=== PATIENT | male | born 1965 | race Caucasian/White ===

== ENCOUNTER 2018-06-07 20:34 | Inpatient (IN) | payer BC, OTHER ==
[~2018-06-07] VITALS: Ht 170.2 cm; Wt 83.5 kg
[2018-06-07 21:02] LABS: BASOPHILS % (AUTO) 1 % (0-10); EOSINOPHILS # (AUTO) 0.1 10^3/uL (0.0-0.3); EOSINOPHILS % (AUTO) 2 % (0-10); HEMATOCRIT 42 % (40-54); HEMOGLOBIN 15.2 G/DL (13.3-17.7); LYMPHOCYTES # (AUTO) 2.7 X 10^3 (1.0-4.0); LYMPHOCYTES % (AUTO) 42 % (12-44); MEAN CORPUSCULAR HEMOGLOBIN 32 PG (25-34); MEAN CORPUSCULAR HGB CONC 37 G/DL (32-36); MEAN CORPUSCULAR VOLUME 87 FL (80-99); MEAN PLATELET VOLUME 10.9 FL (7.4-10.4); MONOCYTES # (AUTO) 0.8 X 10^3 (0.0-1.0); MONOCYTES % (AUTO) 12 % (0-12); NEUTROPHILS # (AUTO) 2.8 X 10^3 (1.8-7.8); NEUTROPHILS % (AUTO) 44 % (42-75); PLATELET COUNT 187 10^3/uL (130-400); RED BLOOD COUNT 4.78 10^6/uL (4.35-5.85); RED CELL DISTRIBUTION WIDTH 12.5 % (10.0-14.5); WHITE BLOOD COUNT 6.5 10^3/uL (4.3-11.0)
[2018-06-07] MEDS: NS IV 1000 ML 1,000 ML IV SCH (21:07)
[2018-06-07 21:24] LABS: ALBUMIN 4.4 GM/DL (3.2-4.5); BILIRUBIN,TOTAL 0.8 MG/DL (0.1-1.0); CALCIUM 9.6 MG/DL (8.5-10.1); CREATININE SERUM 1.68 MG/DL (0.60-1.30); POTASSIUM 4.2 MMOL/L (3.6-5.0); TOTAL PROTEIN 7.5 GM/DL (6.4-8.2)
[2018-06-07 21:27] LABS: BILIRUBIN,URINE NEGATIVE (NEGATIVE); CLARITY,URINE CLEAR; COLOR,URINE YELLOW; GLUCOSE, URINE (UA) 4+ (NEGATIVE); KETONES,URINE 1+ (NEGATIVE); LEUKOCYTE ESTERASE ,URINE NEGATIVE (NEGATIVE); NITRITE,URINE NEGATIVE (NEGATIVE); PH,URINE 6 (5-9); PROTEIN,URINE NEGATIVE (NEGATIVE); UROBILINOGEN,URINE NORMAL (NORMAL)
[2018-06-07 21:37] LABS: SQUAMOUS EPITHELIAL CELL,UR RARE /HPF
[2018-06-07] MEDS ORDERED: inSUlin (REGULAR) HUMAN 1 UNIT/0.01 ML (CHARGE PER UNIT) IV ONE (21:45)
[2018-06-07] MEDS ORDERED: NS IV 1000 ML 1,000 ML IV SCH (21:45)
--- NOTE | 2018-06-07 21:58 | ED General ---
General Chief Complaint: Glucose Problems Stated Complaint: POSS DKA Nursing Triage Note: pt presents to ed with complaints of 15 lb weight loss x 30 days, increase in thirst and urination x 1 week. pt was seen at his doctors office today and told his A1C was 12.9. Pt reports he checked his blood sugar lpta and it read high on his glucometer. Nursing Sepsis Screen: No Definite Risk Source of Information: Patient Exam Limitations: No Limitations History of Present Illness Date Seen by Provider: Jun 07, 2018 Time Seen by Provider: 20:50 Initial Comments Patient is a 53-year-old male who presents to the emergency room with complaints of 15 pound weight loss over the past month increased thirst and urination for the past week and was seen today at his doctor's office and told that he had a hemoglobin A1c of 12.9. He checked his blood sugars on his glucometer at home and his meter was too high to read. Denies any nausea or vomiting. Timing/Duration: Changing Over Time Associated Systoms: Malaise Allergies and Home Medications Allergies Coded Allergies: codeine (Verified Allergy, Unknown, 06/07/18) Patient Home Medication List Home Medication List Reviewed: Yes Review of Systems Review of Systems Constitutional: see HPI; No chills, No fever; weight loss Genitourinary: see HPI, frequency All Other Systems Reviewed Negative Unless Noted: Yes Past Yistgzg-Hebqwh-Raktuy Hx Past Med/Social Hx: Reviewed Nursing Past Med/Soc Hx Patient Social History Alcohol Use: Past History Alcohol Beverage of Choice: Beer Recreational Drug Use: No Smoking Status: Never a Smoker Type Used: Smokeless Tobacco Recent Foreign Travel: No Contact w/Someone Who Travel: No Recent Infectious Disease Expo: No Recent Hopitalizations: No Physical Abuse: No Sexual Abuse: No Mistreated: No Fear: No Past Medical History Surgeries: Yes (tubes in ears, rib fx) Respiratory: No Cardiac: Yes Hypertension Neurological: No Genitourinary: No Gastrointestinal: No Musculoskeletal: No Endocrine: Yes Diabetes, Non-Insulin dep HEENT: No Cancer: No Psychosocial: No Blood Disorders: No Family Medical History Reviewed Nursing Family Hx Physical Exam Vital Signs Vital Signs - First Documented 06/07/18 20:50 Temp 98.6 Pulse 71 Resp 20 B/P (MAP) 170/105 (126) Pulse Ox 98 Capillary Refill : Less Than 3 Seconds Height, Weight, BMI Height: 5'7.00" Weight: 180lbs. oz. 81.866409mk; BMI Method:Stated General Appearance: No Apparent Distress, WD/WN HEENT: PERRL/EOMI, TMs Normal, Normal ENT Inspection, Pharynx Normal Neck: Full Range of Motion, Normal Inspection, Non Tender, Supple, Carotid Bruit Respiratory: Chest Non Tender, Lungs Clear, Normal Breath Sounds, No Accessory Muscle Use, No Respiratory Distress; No Crackles, No Decreased Breath Sounds, No Expiration, No Inspiration, No Pleural Rub, No Rales, No Respiratory Distress , No Rhonci, No Stridor, No Wheezing, No Other Cardiovascular: Regular Rate, Rhythm, No Edema, No Gallop, No JVD, No Murmur, Normal Peripheral Pulses Gastrointestinal: Normal Bowel Sounds, No Organomegaly, No Pulsatile Mass, Non Tender, Soft Neurologic/Psychiatric: Alert, Oriented x3, Normal Mood/Affect Skin: Normal Color, Warm/Dry Progress/Results/Core Measures Suspected Sepsis Recent Fever Within 48 Hours: No Infection Criteria Present: None New/Unexplained Altered Menta: No Sepsis Screen: No Definite Risk SIRS Temperature:98.6 Pulse: 71 Respiratory Rate: 20 Laboratory Tests 06/07/18 20:53: White Blood Count 6.5 Blood Pressure 170 /105 Mean: 126 Laboratory Tests 06/07/18 20:53: Creatinine 1.68H, Platelet Count 187, Total Bilirubin 0.8 06/07/18 23:20: Results/Orders Lab Results Laboratory Tests Test 06/07/18 20:53 06/07/18 21:20 06/07/18 22:17 06/07/18 23:13 Range/Units White Blood Count 6.5 4.3-11.0 10^3/uL Red Blood Count 4.78 4.35-5.85 10^6/uL Hemoglobin 15.2 13.3-17.7 G/DL Hematocrit 42 40-54 % Mean Corpuscular Volume 87 80-99 FL Mean Corpuscular Hemoglobin 32 25-34 PG Mean Corpuscular Hemoglobin Concent 37 H 32-36 G/DL Red Cell Distribution Width 12.5 10.0-14.5 % Platelet Count 187 130-400 10^3/uL Mean Platelet Volume 10.9 H 7.4-10.4 FL Neutrophils (%) (Auto) 44 42-75 % Lymphocytes (%) (Auto) 42 12-44 % Monocytes (%) (Auto) 12 0-12 % Eosinophils (%) (Auto) 2 0-10 % Basophils (%) (Auto) 1 0-10 % Neutrophils # (Auto) 2.8 1.8-7.8 X 10^3 Lymphocytes # (Auto) 2.7 1.0-4.0 X 10^3 Monocytes # (Auto) 0.8 0.0-1.0 X 10^3 Eosinophils # (Auto) 0.1 0.0-0.3 10^3/uL Basophils # (Auto) 0.0 0.0-0.1 10^3/uL Sodium Level 124 *L 135-145 MMOL/L Potassium Level 4.2 3.6-5.0 MMOL/L Chloride Level 89 L 98-107 MMOL/L Carbon Dioxide Level 20 L 21-32 MMOL/L Anion Gap 15 H 5-14 MMOL/L Blood Urea Nitrogen 24 H 7-18 MG/DL Creatinine 1.68 H 0.60-1.30 MG/DL Estimat Glomerular Filtration Rate 43 BUN/Creatinine Ratio 14 Glucose Level 772 *H 70-105 MG/DL Calcium Level 9.6 8.5-10.1 MG/DL Corrected Calcium 9.3 8.5-10.1 MG/DL Magnesium Level 2.5 H 1.8-2.4 MG/DL Total Bilirubin 0.8 0.1-1.0 MG/DL Aspartate Amino Transf (AST/SGOT) 19 5-34 U/L Alanine Aminotransferase (ALT/SGPT) 25 0-55 U/L Alkaline Phosphatase 189 H 40-136 U/L Total Protein 7.5 6.4-8.2 GM/DL Albumin 4.4 3.2-4.5 GM/DL Urine Color YELLOW Urine Clarity CLEAR Urine pH 6 5-9 Urine Specific [place] 1.015 L 1.016-1.022 Urine Protein NEGATIVE NEGATIVE Urine Glucose (UA) 4+ H NEGATIVE Urine Ketones 1+ H NEGATIVE Urine Nitrite NEGATIVE NEGATIVE Urine Bilirubin NEGATIVE NEGATIVE Urine Urobilinogen NORMAL NORMAL MG/DL Urine Leukocyte Esterase NEGATIVE NEGATIVE Urine RBC (Auto) NEGATIVE NEGATIVE Urine RBC NONE /HPF Urine WBC NONE /HPF Urine Squamous Epithelial Cells RARE /HPF Urine Crystals NONE /LPF Urine Bacteria NONE /HPF Urine Casts NONE /LPF Urine Mucus NEGATIVE /LPF Urine Culture Indicated NO Glucometer 444 *H 193 H 70-110 MG/DL Test 06/07/18 23:20 Range/Units My Orders Orders - TIKI ARIAS Comprehensive Metabolic Panel (06/07/18 20:50) Ua Culture If Indicated (06/07/18 20:50) Saline Lock/Iv-Start (06/07/18 20:50) Cbc With Automated Diff (06/07/18 20:50) Magnesium (06/07/18 20:50) Ns Iv 1000 Ml (Sodium Chloride 0.9%) (06/07/18 21:00) Ns Iv 1000 Ml (Sodium Chloride 0.9%) (06/07/18 21:45) Insulin (Regular) Human (Humulin R (Per (06/07/18 21:45) Medications Given in ED Current Medications Medications Dose Ordered Sig/Eugenia Route Start Time Stop Time Status Last Admin Dose Admin Insulin Human Regular 10 unit ONCE ONCE IV 06/07/18 21:45 06/07/18 21:46 DC 06/07/18 21:56 10 UNIT Vital Signs/I&O 06/07/18 06/07/18 06/07/18 20:50 22:24 22:33 Temp 98.6 Pulse 71 82 83 Resp 20 16 B/P (MAP) 170/105 (126) 143/101 (115) Pulse Ox 98 97 Capillary Refill : Less Than 3 Seconds Blood Pressure Mean: 126 Progress Note : Time: 21:50 Progress Note I have seen and evaluated the patient. His blood sugar is in the 400's after insulin administration. I have spoke to Dr. Estrada and he agrees to accept the patient to hospitalist services and the patient will be admitted to the ICU. The patient agrees with plan of care. Departure Communication (Admissions) Time/Spoke to Admitting Phy: 21:50 Dr. Estrada. Impression Primary Impression: Type 2 diabetes mellitus with hyperosmolar nonketotic hyperglycemia Disposition: ADMITTED INPATIENT Condition: Stable/Unchanged Admissions Decision to Admit Reason: Admit from ER (General) Decision to Admit/Date: Jun 07, 2018 Time/Decision to Admit Time: 21:50 Departure-Patient Inst. Referrals: OSCAR AMIN MD (PCP) Primary Care Physician TIKI ARIAS Jun 07, 2018 21:58
[2018-06-07 22:29] VITALS: BP 157/110
[2018-06-07 22:32] VITALS: BP 147/108
[2018-06-07] MEDS ORDERED: ONDANSETRON 4 MG/2 ML (SDV) Z0FRAN ONE (22:37)
[2018-06-07 22:45] VITALS: BP 130/98
[2018-06-07] MEDS ORDERED: NS IV 1000 ML X 1 WIDE OPEN IV ONE (22:45)
[2018-06-07] MEDS ORDERED: REGULAR inSUlin DRIP 250 UNITS/NS 250 ML IV SCH ×2 (22:45)
[2018-06-07] MEDS ORDERED: DEXTROSE 10% IV SOLUTION 1,000 ML IV SCH (22:45)
[2018-06-07] MEDS ORDERED: ONDANSETRON 4 MG/2 ML (SDV) Z0FRAN IV PRN (22:45)
[2018-06-07] MEDS ORDERED: NORMAL SALINE 250 ML ONE (22:50)
[2018-06-07] MEDS ORDERED: inSUlin (REGULAR) HUMAN 1 UNIT/0.01 ML (CHARGE PER UNIT) ONE (22:50)
[2018-06-07 23:00] VITALS: BP 132/92
[2018-06-07 23:30] VITALS: BP 133/92
[2018-06-07 23:45] VITALS: BP 125/92
[2018-06-07 23:51] LABS: BUN/CREATININE RATIO 19; CALCIUM 8.3 MG/DL (8.5-10.1); CARBON DIOXIDE 18 MMOL/L (21-32); CHLORIDE 103 MMOL/L (98-107); GFR ESTIMATED > 60; GLUCOSE 224 MG/DL (70-105); POTASSIUM 3.8 MMOL/L (3.6-5.0); SODIUM 134 MMOL/L (135-145)
[2018-06-07] MEDS ORDERED: POTASSIUM CL 10MEQ/50ML IVPB 50 ML IV ONE (23:59)
[2018-06-08] VITALS (16 sets, daily range): BP systolic 95–142; BP diastolic 45–91
[2018-06-08] MEDS: 1/2 NS IV SOLUTION 1,000 ML IV SCH ×3 (00:20→07:16)
[2018-06-08] MEDS: D5 1/2 NS IV 1,000 ML IV SCH ×3 (00:22→05:03)
[2018-06-08] MEDS ORDERED: POTASSIUM CL 10MEQ/50ML IVPB 50 ML IV ONE (00:45)
[2018-06-08] MEDS: POTASSIUM CL 10MEQ/50ML IVPB 50 ML IV PRN ×2 (02:03→05:02)
[2018-06-08 04:17] LABS: BASOPHILS % (AUTO) 1 % (0-10); EOSINOPHILS # (AUTO) 0.2 10^3/uL (0.0-0.3); EOSINOPHILS % (AUTO) 4 % (0-10); HEMATOCRIT 34 % (40-54); HEMOGLOBIN 12.9 G/DL (13.3-17.7); LYMPHOCYTES # (AUTO) 2.9 X 10^3 (1.0-4.0); LYMPHOCYTES % (AUTO) 51 % (12-44); MEAN CORPUSCULAR HEMOGLOBIN 33 PG (25-34); MEAN CORPUSCULAR HGB CONC 38 G/DL (32-36); MEAN CORPUSCULAR VOLUME 86 FL (80-99); MEAN PLATELET VOLUME 10.5 FL (7.4-10.4); MONOCYTES # (AUTO) 0.6 X 10^3 (0.0-1.0); MONOCYTES % (AUTO) 10 % (0-12); NEUTROPHILS % (AUTO) 35 % (42-75); PLATELET COUNT 144 10^3/uL (130-400); RED BLOOD COUNT 3.97 10^6/uL (4.35-5.85); RED CELL DISTRIBUTION WIDTH 12.1 % (10.0-14.5); WHITE BLOOD COUNT 5.8 10^3/uL (4.3-11.0)
[2018-06-08 04:46] LABS: ALANINE AMINOTRANSFERASE 19 U/L (0-55); ALBUMIN 3.4 GM/DL (3.2-4.5); ALKALINE PHOSPHATASE 113 U/L (40-136); BILIRUBIN,TOTAL 0.6 MG/DL (0.1-1.0); BUN/CREATININE RATIO 16; CALCIUM 7.8 MG/DL (8.5-10.1); CARBON DIOXIDE 20 MMOL/L (21-32); CHLORIDE 105 MMOL/L (98-107); CREATININE SERUM 0.86 MG/DL (0.60-1.30); GFR ESTIMATED > 60; GLUCOSE 260 MG/DL (70-105); MAGNESIUM 2.1 MG/DL (1.8-2.4); PHOSPHORUS 2.3 MG/DL (2.3-4.7); POTASSIUM 3.4 MMOL/L (3.6-5.0); SODIUM 134 MMOL/L (135-145); TOTAL PROTEIN 5.6 GM/DL (6.4-8.2)
[2018-06-08] MEDS ORDERED: KCL 20 MEQ TAB (K-DUR) PO ONE (05:00)
[2018-06-08] MEDS ORDERED: KCL 20 MEQ TAB (K-DUR) PO SCH (06:00)
[2018-06-08] MEDS ORDERED: POTASSIUM CL 10MEQ/50ML IVPB 50 ML IV SCH (06:00)
[2018-06-08] MEDS ORDERED: MAGNESIUM 1 GM/100 ML IVPB 100 ML IV SCH (06:00)
--- NOTE | 2018-06-08 07:14 | Pulmonary Consultation ---
History of Present Illness History of Present Illness Date of Consultation 06/08/18 07:09 Time Seen by Provider: 07:09 Date of Admission History of Present Illness 53yo with hx of IDDM admitted to ICU from ED secondary to acute dehydration,and hyperglycemia. He has had a 15lb wt loss over the last month and increased urination. His home BS was too high to read. PT states he use to be on insulin however his doctor took him off insulin. Allergies and Home Medications Allergies Coded Allergies: codeine (Verified Allergy, Unknown, 06/07/18) Past Qzkfhwx-Aafgmi-Jtnlda Hx Past Med/Social Hx: Reviewed Nursing Past Med/Soc Hx Patient Social History Alcohol Use: Past History Number of Drinks Today: AA Alcohol Beverage of Choice: Beer Recreational Drug Use: No Smoking Status: Never a Smoker Type Used: Smokeless Tobacco Recent Foreign Travel: No Contact w/Someone Who Travel: No Recent Infectious Disease Expo: No Recent Hopitalizations: No Physical Abuse: No Sexual Abuse: No Mistreated: No Fear: No Seasonal Allergies Seasonal Allergies: No Past Medical History Surgeries: Yes (tubes in ears, rib fx) Respiratory: No Cardiac: Yes Hypertension Neurological: No Genitourinary: No Gastrointestinal: No Musculoskeletal: No Endocrine: Yes Diabetes, Non-Insulin dep HEENT: No Cancer: No Psychosocial: No Integumentary: No Blood Disorders: No Family Medical History Reviewed Nursing Family Hx Diabetes mellitus 19 FATHER Osteoporosis 19 MOTHER Review of Systems Time Seen by Provider: 07:29 Constitutional: Weakness, Malaise; No: Fever, Chills, Sweats, Other Respiratory: Shortness of breath, SOB with excertion Cardiovascular: No: Paroxysmal Noc. Dyspnea Gastrointestinal: No: Nausea, Vomiting Neurological: Weakness Sepsis Event Evaluation Height, Weight, BMI Height: 5'7.00" Weight: 184lbs. 2.0oz. 83.875119ao; 28.8 BMI Method:Stated Exam Exam Vital Signs Date Time Temp Pulse Resp B/P (MAP) Pulse Ox O2 Delivery O2 Flow Rate FiO2 06/08/18 06:00 77 13 109/83 (92) 95 Room Air 06/08/18 05:00 80 10 105/70 (82) 93 Room Air 06/08/18 04:00 93 Room Air 06/08/18 04:00 79 14 103/74 (84) 94 Room Air 06/08/18 04:00 98.9 10/17/18 03:00 74 13 97/77 (84) 93 Room Air 06/08/18 02:00 74 14 101/74 (83) 93 Room Air 06/08/18 01:00 70 13 108/70 (83) 93 Room Air 06/08/18 01:00 70 06/08/18 00:00 94 Room Air 06/08/18 00:00 77 11 115/79 (91) 94 Room Air 06/08/18 00:00 98.5 06/07/18 23:45 83 24 125/92 (103) 94 Room Air 06/07/18 23:30 87 10 133/92 (106) 94 Room Air 06/07/18 23:15 81 14 95 Room Air 06/07/18 23:00 81 13 132/92 (105) 94 Room Air 06/07/18 22:45 89 17 130/98 (109) 96 Room Air 06/07/18 22:33 83 06/07/18 22:32 81 18 147/108 (121) 99 Room Air 06/07/18 22:29 97.0 83 26 157/110 (126) 99 Room Air 06/07/18 22:25 96 Room Air 06/07/18 22:24 82 16 143/101 (115) 97 06/07/18 20:50 98.6 71 20 170/105 (126) 98 I & O 06/08/18 07:00 Intake Total 3390 ml Output Total 500 ml Balance 2890 ml Height & Weight Height: 5'7.00" Weight: 184lbs. 2.0oz. 83.338626fq; 28.8 BMI Method:Stated General Appearance: No Apparent Distress, WD/WN HEENT: PERRL/EOMI, TMs Normal, Normal ENT Inspection, Pharynx Normal Neck: Full Range of Motion, Normal Inspection, Non Tender, Supple, Carotid Bruit Respiratory: Chest Non Tender, Lungs Clear, Normal Breath Sounds, No Accessory Muscle Use, No Respiratory Distress; No Crackles, No Decreased Breath Sounds, No Expiration, No Inspiration, No Pleural Rub, No Rales, No Respiratory Distress , No Rhonci, No Stridor, No Wheezing, No Other Cardiovascular: Regular Rate, Rhythm, No Edema, No Gallop, No JVD, No Murmur, Normal Peripheral Pulses Capillary Refill: Less Than 3 Seconds Gastrointestinal: non tender, soft Neurologic/Psychiatric: Alert, Oriented x3, Normal Mood/Affect Skin: Normal Color, Warm/Dry Results Lab Laboratory Tests 06/07/18 20:53 06/07/18 23:20 06/08/18 03:55 Assessment/Plan Assessment/Plan -DKA/HHNK -Urine positive for keytones -Now much improved -D/C insulin gtt and start sub Q Levemir -education Hyponatremia -Change IVF to NS Hypokalemia -replace FERNANDO COX DO Jun 08, 2018 7:14 am
[2018-06-08] MEDS ORDERED: FLU QUADRIvalent (5+ YOA) 2018-2019 (AFLURIA) 0.5 ML IM ONE (07:15)
[2018-06-08] MEDS: NS IV 1000 ML 1,000 ML IV SCH (07:17)
[2018-06-08] MEDS ORDERED: inSUlin DETERMIR 1 UNIT/0.01 ML (LEVEMIR) CHARGE PER UNIT SQ NR (07:45)
[2018-06-08] MEDS ORDERED: NS IV 1000 ML 1,000 ML IV SCH (07:45)
--- NOTE | 2018-06-08 08:41 | Diagnostic Imaging Report ---
INDICATION: New admission to ICU. TECHNIQUE: Single view chest at 3:27 AM. CORRELATION STUDY: None. FINDINGS: There is a limited depth of inspiration with atelectasis at the lung bases. No significant infiltrate. Probable calcified granuloma in the left mid lung field. The heart size, mediastinum, and vasculature are within normal limits given technique. Probable old right posterior rib fractures. IMPRESSION: Negative for acute abnormality on this single view portable chest. Dictated by: Dictated on workstation # [id number]
--- NOTE | 2018-06-08 08:52 | History & Physical-Hospitalist ---
History of Present Illness Date Seen 06/08/18 Attending Physician Mehran Estrada MD PCP Artem Arias MD Referring Physician Date of Admission Jun 07, 2018 at 22:02 Home Medications & Allergies Home Medications Reviewed patient Home Medication Reconciliation performed by pharmacy medication reconciliations elevator technician and/or nursing. Patients Allergies have been reviewed. Allergies Allergies Coded Allergies codeine (Verified Allergy, Unknown, 06/07/18) Past Tyiixoe-Ulafcv-Jekmta Hx Past Med/Social Hx: Reviewed Nursing Past Med/Soc Hx Patient Social History Alcohol Use: Past History Number of Drinks Today: AA Alcohol Beverage of Choice: Beer Recreational Drug Use: No Smoking Status: Never a Smoker Type Used: Smokeless Tobacco Physical Abuse Screen: No Sexual Abuse: No Recent Foreign Travel: No Contact w/other who traveled: No Recent Hopitalizations: No Recent Infectious Disease Expo: No Seasonal Allergies Seasonal Allergies: No Past Medical History Cardiac: Hypertension Endocrine: Diabetes, Non-Insulin dep History of Blood Disorders: No Family History Reviewed Nursing Family Hx Diabetes mellitus 19 FATHER Osteoporosis 19 MOTHER Physical Exam Physical Exam Vital Signs Vital Signs - First Documented 06/07/18 06/07/18 20:50 22:25 Temp 98.6 Pulse 71 Resp 20 B/P (MAP) 170/105 (126) Pulse Ox 98 O2 Delivery Room Air Capillary Refill : Less Than 3 Seconds Height, Weight, BMI Height: 5'7.00" Weight: 184lbs. 2.0oz. 83.780233kx; 28.8 BMI Method:Stated Results Results/Procedures Labs Laboratory Tests 06/07/18 20:53 06/07/18 23:20 06/08/18 03:55 Patient resulted labs reviewed. Clinical Quality Measures DVT/VTE Risk/Contraindication: Risk Factor Score Per Nursin RFS Level Per Nursing on Admit: 1=Low/No VTE PPX YULI MARAVILLA DO Jun 08, 2018 08:52
[2018-06-08] MEDS ORDERED: inSUlin ASPART (NovoLOG) 1 UNIT/0.01 ML (CHARGE PER UNIT) SC SCH (11:00)
[2018-06-08] MEDS ORDERED: AMLO5TAB7 PO (11:25)
[2018-06-08] MEDS ORDERED: ENAL20TA PO (11:25)
[2018-06-08] MEDS ORDERED: MAGN400T29 PO (11:25)
--- NOTE | 2018-06-08 11:57 | History & Physical-Hospitalist ---
MEHRAN CANDELARIO MD 06/08/18 1157: History of Present Illness HPI/Chief Complaint The patient is a 53-year-old white male who was first diagnosed as being diabetic about 5 years ago. He took TUJEO and Humalog at that time. He weighed 300 pounds at that time and lost 125 pounds. It was then deemed that he was no longer diabetic. He was taken off these medications. He had followed with Dr. Carbajal in [place] after moving back to this area from [place]. Just prior to Dr. Carbajal's long term and approximately 6 months ago he had a hemoglobin A1c which was 5. In the past 2-3 weeks he has lost 15 pounds. His had frequency of urination. It is noted as compared to the original 300 pounds and adding back the 15 pounds that his weight had been had right at 200 pounds his blood sugar at presentation to the emergency room last night was 772. He was not acidotic. Date Seen 06/08/18 Time Seen by a Provider: 11:52 Attending Physician Mehran Candelario MD PCP Artem Arias MD Referring Physician Date of Admission Jun 07, 2018 at 22:02 Home Medications & Allergies Home Medications Reviewed patient Home Medication Reconciliation performed by pharmacy medication reconciliations orthotics technician and/or nursing. Patients Allergies have been reviewed. Allergies Allergies Coded Allergies codeine (Verified Allergy, Unknown, 06/07/18) Past Oraptuc-Letgra-Lqzwjz Hx Past Med/Social Hx: Reviewed Nursing Past Med/Soc Hx Patient Social History Alcohol Use: Past History Number of Drinks Today: AA Alcohol Beverage of Choice: Beer Recreational Drug Use: No Smoking Status: Never a Smoker Type Used: Smokeless Tobacco Physical Abuse Screen: No Sexual Abuse: No Recent Foreign Travel: No Contact w/other who traveled: No Recent Hopitalizations: No Recent Infectious Disease Expo: No Seasonal Allergies Seasonal Allergies: No Past Medical History Cardiac: Hypertension Endocrine: Diabetes, Non-Insulin dep History of Blood Disorders: No Family History Reviewed Nursing Family Hx Diabetes mellitus 19 FATHER Osteoporosis 19 MOTHER Review of Systems Constitutional: see HPI EENTM: vision loss (blurred) Respiratory: no symptoms reported Cardiovascular: no symptoms reported Gastrointestinal: no symptoms reported Genitourinary: no symptoms reported Musculoskeletal: no symptoms reported Skin: no symptoms reported Psychiatric/Neurological: No Symptoms Reported Physical Exam Physical Exam Vital Signs Vital Signs - First Documented 06/07/18 06/07/18 20:50 22:25 Temp 98.6 Pulse 71 Resp 20 B/P (MAP) 170/105 (126) Pulse Ox 98 O2 Delivery Room Air Capillary Refill : Less Than 3 Seconds Height, Weight, BMI Height: 5'7.00" Weight: 184lbs. 2.0oz. 83.677741dj; 28.8 BMI Method:Stated General Appearance: No Apparent Distress, WD/WN Eyes: Bilateral Eye Normal Inspection HEENT: Normal ENT Inspection Neck: Full Range of Motion, Normal Inspection, Non Tender, Supple, Carotid Bruit Respiratory: Chest Non Tender, Lungs Clear, Normal Breath Sounds, No Accessory Muscle Use, No Respiratory Distress Cardiovascular: Regular Rate, Rhythm, No Edema, No Gallop, No JVD, No Murmur, Normal Peripheral Pulses Gastrointestinal: Normal Bowel Sounds, No Organomegaly, No Pulsatile Mass, Non Tender, Soft Back: Normal Inspection Extremity: Normal Capillary Refill, Normal Inspection, Normal Range of Motion, Non Tender, No Calf Tenderness, No Pedal Edema Neurologic/Psychiatric: Alert, Oriented x3, No Motor/Sensory Deficits, Normal Mood/Affect Skin: Normal Color, Warm/Dry Lymphatic: No Adenopathy Results Results/Procedures Labs Laboratory Tests 06/07/18 20:53 06/07/18 23:20 06/08/18 03:55 Patient resulted labs reviewed. Clinical Quality Measures DVT/VTE Risk/Contraindication: Risk Factor Score Per Nursin RFS Level Per Nursing on Admit: 1=Low/No VTE PPX FRANCISCA BANERJEE MEDICAL STUDENT 06/08/18 1344: History of Present Illness HPI/Chief Complaint Patient is a 53 yo male with a hx of DM and HTN who presented to the ED with acute dehydration and hyperglycemia. Blood sugar at presentation was 772. Urine has 4+ glucose and 1+ ketones. Pt states he has experienced a 15 lb weight loss over the last month, increased thirst, urination and leg cramps. He was previously diagnosed with DM 5 years ago, but with some weight loss was eventually taken off medications by his PCP, Dr. Carbajal about 2 years ago. Went to his physicians office before going to ED, found to have an a1c of 12+ and a BS that was too high to read. Time Seen by a Provider: 09:30 Past Ufemhwe-Ixtayz-Qwnuib Hx Patient Social History Alcohol Beverage of Choice: Beer Type Used: Smokeless Tobacco Recent Hopitalizations: No Social History Worked in [employer] for 37 years. Past Medical History Surgeries: Ear Surgery (tympanostomy tubes ) Cardiac: Hypertension Endocrine: Diabetes, Non-Insulin dep (See HPI) Family History Reviewed Nursing Family Hx Diabetes mellitus 19 FATHER Osteoporosis 19 MOTHER Review of Systems Constitutional: see HPI Respiratory: No cough, No short of breath, No wheezing Cardiovascular: No chest pain, No edema Gastrointestinal: No abdominal pain Genitourinary: see HPI; No dysuria; frequency Musculoskeletal: see HPI, muscle cramps Skin: No lesions Physical Exam Physical Exam HEENT: Normal ENT Inspection Neck: Full Range of Motion, Normal Inspection, Non Tender, Supple, Carotid Bruit Respiratory: Chest Non Tender, Lungs Clear, Normal Breath Sounds, No Accessory Muscle Use, No Respiratory Distress Cardiovascular: Regular Rate, Rhythm, No Edema, No Gallop, No JVD, No Murmur, Normal Peripheral Pulses Gastrointestinal: No Organomegaly, Non Tender, Soft Extremity: Normal Capillary Refill, Normal Inspection, Normal Range of Motion, Non Tender, No Calf Tenderness, No Pedal Edema Neurologic/Psychiatric: Alert, Oriented x3, No Motor/Sensory Deficits, Normal Mood/Affect Skin: Normal Color, Warm/Dry Results Results/Procedures Imaging: Reviewed Imaging Report Imaging Date of Exam: 06/08/18 CHEST 1 VIEW, AP/PA ONLY INDICATION: New admission to ICU. TECHNIQUE: Single view chest at 3:27 AM. CORRELATION STUDY: None. FINDINGS: There is a limited depth of inspiration with atelectasis at the lung bases. No significant infiltrate. Probable calcified granuloma in the left mid lung field. The heart size, mediastinum, and vasculature are within normal limits given technique. Probable old right posterior rib fractures. IMPRESSION: Negative for acute abnormality on this single view portable chest. Assessment/Plan Admission Diagnosis Admission Status: Inpatient Order (span 2 midnights) Diagnosis/Problems Diagnosis/Problems (1) Type 2 diabetes mellitus with hyperosmolar nonketotic hyperglycemia Status: Acute Assessment & Plan: Improving Urine pos for ketones Homolog & Levemir Fluid resuscitation Education (2) HTN (hypertension) Status: Chronic Assessment & Plan: Holding home meds (3) Hyponatremia Assessment & Plan: Expect to correct with NS fluid resuscitation MEHRAN CANDELARIO MD Jun 08, 2018 11:57 FRANCISCA BANERJEE MEDICAL STUDENT Jun 08, 2018 13:44
[2018-06-08 12:20] LABS: BUN/CREATININE RATIO 14; CALCIUM 8.1 MG/DL (8.5-10.1); CARBON DIOXIDE 20 MMOL/L (21-32); CHLORIDE 106 MMOL/L (98-107); CREATININE SERUM 0.77 MG/DL (0.60-1.30); GFR ESTIMATED > 60; GLUCOSE 140 MG/DL (70-105); POTASSIUM 3.9 MMOL/L (3.6-5.0); SODIUM 134 MMOL/L (135-145)
[2018-06-08] MEDS ORDERED: MAGNESIUM OXIDE (MAG-OX)400 MG TAB PO SCH (15:00)
[2018-06-08] MEDS: inSUlin ASPART (NovoLOG) 1 UNIT/0.01 ML (CHARGE PER UNIT) SC SCH (16:26)
[2018-06-08] MEDS ORDERED: amLODIPine 5 MG (NORVASC) TAB ONE (20:12)
[2018-06-08] MEDS ORDERED: inSUlin ASPART (NovoLOG) 1 UNIT/0.01 ML (CHARGE PER UNIT) SC NR (20:15)
[2018-06-08] MEDS: amLODIPine 5 MG (NORVASC) TAB PO SCH (20:19)
[2018-06-08] MEDS ORDERED: inSUlin DETERMIR 1 UNIT/0.01 ML (LEVEMIR) CHARGE PER UNIT SQ SCH ×2 (21:00)
[2018-06-09 00:15] VITALS: BP 143/80
[2018-06-09 04:19] VITALS: BP 136/83
[2018-06-09 08:00] VITALS: BP 145/93
[2018-06-09] MEDS: amLODIPine 5 MG (NORVASC) TAB PO SCH (08:25)
[2018-06-09] MEDS: inSUlin ASPART (NovoLOG) 1 UNIT/0.01 ML (CHARGE PER UNIT) SC SCH ×2 (08:25→12:37)
[2018-06-09] MEDS ORDERED: inSUlin DETERMIR 1 UNIT/0.01 ML (LEVEMIR) CHARGE PER UNIT SQ SCH (09:00)
[2018-06-09] MEDS ORDERED: INSU100I14 SQ ×2 (10:54→11:10)
[2018-06-09] MEDS ORDERED: INSU100I29 SQ ×2 (10:54→11:10)
[2018-06-09] MEDS ORDERED: NEED-474 MC (10:54)
--- NOTE | 2018-06-09 10:55 | Discharge Summary-Hospitalist ---
Diagnosis/Chief Complaint Date of Admission Jun 07, 2018 at 22:02 Date of Discharge Discharge Date: Jun 09, 2018 Discharge Diagnosis (1) Type 2 diabetes mellitus with hyperosmolar nonketotic hyperglycemia Status: Acute Assessment & Plan: Improving Urine pos for ketones Homolog & Levemir Fluid resuscitation Education (2) HTN (hypertension) Status: Chronic Assessment & Plan: Holding home meds (3) Hyponatremia Status: Acute Assessment & Plan: Expect to correct with NS fluid resuscitation Discharge Summary Discharge Physical Exam Allergies: Coded Allergies: codeine (Verified Allergy, Unknown, 06/07/18) Vitals & I&Os Vital Signs Date Time Temp Pulse Resp B/P (MAP) Pulse Ox O2 Delivery O2 Flow Rate FiO2 06/09/18 12:55 97 18 143/97 98 Room Air 06/09/18 11:25 97.5 General Appearance: No Apparent Distress, WD/WN Respiratory: Chest Non Tender, Lungs Clear, Normal Breath Sounds, No Accessory Muscle Use, No Respiratory Distress Cardiovascular: Regular Rate, Rhythm, No Edema, No Gallop, No JVD, No Murmur, Normal Peripheral Pulses Neurologic/Psychiatric: Alert, Oriented x3, No Motor/Sensory Deficits, Normal Mood/Affect Hospital Course Hospital course: Patient was admitted for hyperosmolar nonketotic status and was aggressively treated with IV fluids and IV insulin. He tolerated restarting insulin regimen was hemoglobin A1c was noted to be 12.5. He tolerated all of the treatments well and was deemed stable for discharge and insulin regimen was sent to the pharmacy. Labs (last 24 hrs) Patient resulted labs reviewed. Pending Labs Imaging: Reviewed Imaging Report Discussion & Recommendations Discharge Planning: <30 minutes discharge planning Discharge Home Medications: Active Scripts Active Novolog Flexpen (Insulin Aspart) 300 Units/3 Ml Solution 15 Units SQ AC Levemir Flextouch (Insulin Detemir) 100 Unit/1 Ml Insuln.pen 30 Unit SQ HS Advocate Pen [place] ([place], Insulin Disposable) 1 Each Dis.needle Each ACHS Reported Enalapril Maleate 20 Mg Tablet 20 Mg PO DAILY LAST FILLED #90 18 Amlodipine Besylate 5 Mg Tablet 5 Mg PO DAILY LAST FILLED #90 18 Magox 400 (Magnesium Oxide) 400 Mg Tablet 400 Mg PO 1500 Instructions to patient/family Please see electronic discharge instructions given to patient. Clinical Quality Measures DVT/VTE Risk/Contraindication: Risk Factor Score Per Nursin RFS Level Per Nursing on Admit: 1=Low/No VTE PPX YULI MARAVILLA DO Jun 09, 2018 10:55
[2018-06-09 11:25] VITALS: BP 143/97
[2018-06-09 12:55] VITALS: BP 143/97
== END 2018-06-09 12:43 | disposition home or self-care (01) | DRG 638 ==
LOC: ER 20:35 → ICU 22:02 → 4TH 06-08 14:38
PROVIDERS: ADMIT Internal Medicine; ATTEND Internal Medicine
DX: E11.00 Type 2 diabetes mellitus with hyperosmolarity without nonketotic hyperglycemic-hyperosmolar coma (NKHHC) (principal); E87.1 Hypo-osmolality and hyponatremia; E86.0 Dehydration; E87.6 Hypokalemia; I10 Essential (primary) hypertension; F17.200 Nicotine dependence, unspecified, uncomplicated
CPT/HCPCS: 36415; 71045; 80048; 80053; 81000; 82962; 83036; 83735; 84100; 85025; 96361; 96374